=== PATIENT | female | born 1970 | race Caucasian/White ===

== ENCOUNTER 2023-06-26 09:29 | Inpatient (IN) | payer OTHER ==
[2023-06-26 10:14] VITALS: BMI 31.8
[2023-06-26] MEDS ORDERED: NALOXONE HCL (KLOXXADO) 8 MG SPRAY NS PRN (10:32)
[2023-06-26] MEDS ORDERED: ACETAMINOPHEN 325 MG TABLET (FP) PO PRN (10:32)
[2023-06-26] MEDS ORDERED: IBUPROFEN 600 MG TABLET (FP) PO PRN (10:32)
[2023-06-26] MEDS ORDERED: POLYETHYLENE GLYCOL (HEALTHYLAX) 3350 17 GM PACKET PO PRN (10:32)
[2023-06-26] MEDS ORDERED: BISMUTH SUBSALICYLATE 262 MG/15 ML BTL PO PRN (10:32)
[2023-06-26] MEDS ORDERED: MAGNESIUM HYDROX 2400MG/30ML ORAL SUSPENSION 30 ML CUP PO PRN (10:32)
[2023-06-26] MEDS ORDERED: METHOCARBAMOL 500 MG TABLET PO PRN (10:32)
[2023-06-26] MEDS ORDERED: LOPERAMIDE HCL 2 MG CAPSULE PO PRN (10:32)
[2023-06-26] MEDS ORDERED: BENZOCAINE/MENTHOL (CHLORASEPTIC ) LOZENGE MM PRN (10:32)
[2023-06-26] MEDS ORDERED: BENZONATATE 200 MG CAPSULE PO PRN (10:32)
[2023-06-26] MEDS ORDERED: hydrOXYzine PAMOATE 25 MG CAPSULE (FP) PO PRN (10:32)
[2023-06-26] MEDS ORDERED: IBUPROFEN 400 MG TABLET (FP) PO PRN (10:32)
[2023-06-26] MEDS ORDERED: ONDANSETRON *ODT* 4 MG TABLET SL PRN (10:32)
[2023-06-26] MEDS ORDERED: guaiFENesin 600 MG TABLET.ER (FP) PO PRN (10:32)
[2023-06-26] MEDS ORDERED: MAG HYDROX/AL HYDROX/SIMETH 30 ML UNIT-DOSE CUP PO PRN (10:32)
[2023-06-26] MEDS ORDERED: NALOXONE HCL 0.4 MG/ML VIAL IM PRN (10:32)
[2023-06-26] MEDS ORDERED: DICYCLOMINE HCL 10 MG CAPSULE PO PRN (10:32)
[2023-06-26] MEDS ORDERED: NICOTINE POLACRILEX 2 MG GUM BUC PRN (10:32)
[2023-06-26] MEDS ORDERED: chlordiazePOXIDE HCL 25 MG CAPSULE PO PRN (10:35)
[2023-06-26] MEDS ORDERED: chlordiazePOXIDE HCL 25 MG CAPSULE ONE (11:12)
[2023-06-26] MEDS: chlordiazePOXIDE HCL 25 MG CAPSULE PO SCH ×3 (11:14→22:26)
[2023-06-26] MEDS: BACITRACIN 0.9 GM PACKET TP SCH (15:46)
[2023-06-26] MEDS: THIAMINE HCL 100 MG TABLET (FP) PO SCH (22:27)
[2023-06-26] MEDS: MELATONIN 5 MG TABLETS PO SCH (22:27)
[2023-06-27] MEDS: chlordiazePOXIDE HCL 25 MG CAPSULE PO SCH ×4 (05:12→22:13)
[2023-06-27] MEDS: NICOTINE 14 MG/24 HOURS TOPICAL PATCH TD SCH (10:08)
[2023-06-27] MEDS: PRENATAL VITAMINS W/ FOLIC ACID TABLET (FP) PO SCH (10:08)
[2023-06-27] MEDS: BACITRACIN 0.9 GM PACKET TP SCH (10:08)
[2023-06-27] MEDS: TRIHEXYPHENIDYL HCL 5 MG TABLET PO SCH (10:08)
[2023-06-27 12:26] LABS: POTASSIUM 4.1 mmol/L (3.5-5.1)
[2023-06-27 12:32] LABS: CALCIUM 10.3 mg/dL (8.5-10.1)
[2023-06-27 12:33] LABS: BLOOD UREA NITROGEN 15.7 mg/dL (7-18)
[2023-06-27 12:34] LABS: HEMATOCRIT 40.3 % (32.4-45.2); HEMOGLOBIN 13.3 GM/dL (10.7-15.3); MCH 28.7 pg (25.7-33.7); MCHC 33.1 g/dl (32.0-36.0); MEAN CELL VOLUME 86.7 fl (80-96); PLATELET COUNT 317 10^3/uL (134-434); RBC 4.64 M/mm3 (3.60-5.2); RDW 13.6 % (11.6-15.6); WHITE BLOOD COUNT 10.6 K/mm3 (4.0-10.0)
[2023-06-27 12:36] LABS: CREATININE 0.6 mg/dL (0.55-1.3)
[2023-06-27 12:38] LABS: BILIRUBIN,TOTAL 0.3 mg/dL (0.2-1); TOT PROT 8.2 g/dl (6.4-8.2)
[2023-06-27] MEDS: MELATONIN 5 MG TABLETS PO SCH (22:12)
[2023-06-27] MEDS: THIAMINE HCL 100 MG TABLET (FP) PO SCH (22:13)
[2023-06-27] MEDS: QUEtiapine FUMARATE 200 MG TABLET PO SCH (22:13)
[2023-06-28] MEDS: chlordiazePOXIDE HCL 25 MG CAPSULE PO SCH ×4 (05:18→22:26)
[2023-06-28] MEDS: PRENATAL VITAMINS W/ FOLIC ACID TABLET (FP) PO SCH (10:37)
[2023-06-28] MEDS: NICOTINE 14 MG/24 HOURS TOPICAL PATCH TD SCH (10:38)
[2023-06-28] MEDS: BACITRACIN 0.9 GM PACKET TP SCH (10:38)
[2023-06-28] MEDS: TRIHEXYPHENIDYL HCL 5 MG TABLET PO SCH (10:38)
[2023-06-28] MEDS: QUEtiapine FUMARATE 100 MG TABLET (FP) PO SCH (10:38)
[2023-06-28] MEDS: MELATONIN 5 MG TABLETS PO SCH (22:26)
[2023-06-28] MEDS: THIAMINE HCL 100 MG TABLET (FP) PO SCH (22:26)
[2023-06-28] MEDS: QUEtiapine FUMARATE 200 MG TABLET PO SCH (22:26)
[2023-06-29] MEDS ORDERED: chlordiazePOXIDE HCL 10 MG CAPSULE PO PRN
[2023-06-29] MEDS: chlordiazePOXIDE HCL 10 MG CAPSULE PO SCH ×2 (06:03→10:32)
[2023-06-29 09:10] VITALS: BP 112/72; PULSE 68; RESP 16; TEMP 97.4
[2023-06-29] MEDS: PRENATAL VITAMINS W/ FOLIC ACID TABLET (FP) PO SCH (10:27)
[2023-06-29] MEDS: TRIHEXYPHENIDYL HCL 5 MG TABLET PO SCH (10:27)
[2023-06-29] MEDS: BACITRACIN 0.9 GM PACKET TP SCH (10:28)
[2023-06-29] MEDS: NICOTINE 14 MG/24 HOURS TOPICAL PATCH TD SCH (10:29)
[2023-06-29] MEDS: QUEtiapine FUMARATE 100 MG TABLET (FP) PO SCH (10:32)
[2023-06-30] MEDS ORDERED: chlordiazePOXIDE HCL 10 MG CAPSULE PO SCH (05:00)
[2023-07-01] MEDS ORDERED: chlordiazePOXIDE HCL 10 MG CAPSULE PO ONE (05:00)
== END 2023-06-29 12:53 | disposition left against medical advice (07) | DRG 770 ==
LOC: YASAS 09:29 → Y3N 11:15
PROVIDERS: ADMIT Allergy & Immunology; ATTEND Surgery
PROC: HZ2ZZZZ Detoxification Services for Substance Abuse Treatment (ICD-10-PCS; principal; 2023-06-26)
DX: F10.230 Alcohol dependence with withdrawal, uncomplicated (principal); F14.20 Cocaine dependence, uncomplicated; F12.20 Cannabis dependence, uncomplicated; F17.210 Nicotine dependence, cigarettes, uncomplicated; F31.9 Bipolar disorder, unspecified; M54.50 Low back pain, unspecified; G89.29 Other chronic pain
CPT/HCPCS: 36415; 80053; 80305; 80307; 81025; 85027; 86780; 87635; 87811; 93005; 93010